=== PATIENT | male | born 1980 | race Hispanic/Latino ===

== ENCOUNTER 2017-02-04 23:42 | Emergency (ER) | payer OTHER ==
[~2017-02-04] VITALS: Ht 190.5 cm; Wt 78.0 kg
[2017-02-04 23:54] VITALS: BP 138/88
[2017-02-05] MEDS ORDERED: BENZOIN TINCTURE 60 ML BTL (FLOOR STOCK) TOP ONE ×2 (00:15)
[2017-02-05] MEDS ORDERED: DERMABOND TOPICAL SKIN ADHESIVE TOP ONE (00:30)
== END 2017-02-05 01:13 | disposition home or self-care (01) ==
LOC: M ED 02-05 00:31
DX: S51.811A Laceration without foreign body of right forearm, initial encounter (principal); W26.0XXA Contact with knife, initial encounter; Y92.149 Unspecified place in prison as the place of occurrence of the external cause; Y93.89 Activity, other specified; Y99.8 Other external cause status